=== PATIENT | female | born 1990 | race American Indian/Alaskan Native ===

== ENCOUNTER 2018-12-24 12:15 | Emergency (ER) | payer OTHER ==
[2018-12-24] MEDS ORDERED: Dexamethasone 4 mg/1 ml IM STA (13:03)
[2018-12-24] MEDS ORDERED: Amoxicillin-Clav 875-125 mg Tab PO STA (14:02)
[2018-12-24] MEDS ORDERED: Amoxicillin-Clav 875-125 mg Tab PO ONE (14:11)
--- NOTE | 2018-12-24 14:21 | C.PDOC ---
History Of Present Illness 28 year old female presents to ED with complaint of fever with associated generalized body aches and sore throat for the past 2 days. Patient has been taking over the counter medication with no relief. She denies nausea, vomiting, diarrhea, cough, chest pain, and shortness of breath. Time Seen by Provider: 12/24/18 12:37 Chief Complaint (Nursing): Flu-like Symptoms History Per: Patient History/Exam Limitations: no limitations Onset/Duration Of Symptoms: Days (2) Current Symptoms Are (Timing): Still Present Location Of Pain: Throat, Diffuse Myalgias Associated Symptoms: Fever, Sore Throat. denies: Cough, Nausea, Vomiting, Diarrhea Past Medical History Reviewed: Historical Data, Nursing Documentation, Vital Signs Vital Signs: Last Vital Signs Temp 100.0 F H 12/24/18 12:58 Pulse 114 H 12/24/18 12:22 Resp 22 12/24/18 12:22 BP 120/80 12/24/18 12:22 Pulse Ox 96 12/24/18 12:22 - Medical History PMH: No Chronic Diseases Surgical History: No Surg Hx Family History: States: Unknown Family Hx - Social History Hx Alcohol Use: No Hx Substance Use: No - Immunization History Hx Tetanus Toxoid Vaccination: Yes Hx Influenza Vaccination: Yes Hx Pneumococcal Vaccination: No Review Of Systems Constitutional: Positive for: Fever, Malaise. Negative for: Chills ENT: Positive for: Throat Pain Cardiovascular: Negative for: Chest Pain Respiratory: Negative for: Cough, Shortness of Breath, Sputum Gastrointestinal: Negative for: Nausea, Vomiting, Diarrhea Physical Exam - Physical Exam Appears: Well, Non-toxic, No Acute Distress Skin: Normal Color, Warm, Dry Head: Atraumatic, Normacephalic Ear(s): Bilateral: Normal Nose: Normal Throat: Erythema (moderate tonsillar erythema and swelling with large amount of exudates) Neck: Other (bilateral anterior cervical lymphadenopathy ) Chest: Symmetrical, No Deformity Cardiovascular: Rhythm Regular, No Murmur, Other (tachycardic) Respiratory: No Accessory Muscle Use, No Rales, No Rhonchi, No Wheezing Gastrointestinal/Abdominal: Soft, No Tenderness Extremity: Capillary Refill (<2 seconds) Neurological/Psych: Oriented x3, Normal Speech, Normal Cognition ED Course And Treatment O2 Sat by Pulse Oximetry: 96 (in RA) Pulse Ox Interpretation: Normal Medical Decision Making Medical Decision Making: Plan: Tylenol PO Toradol IM Decadron IM Augmentin PO Disposition - Disposition Referrals: Bright Sorensen MD [Staff Provider] - Disposition: HOME/ ROUTINE Disposition Time: 14:16 Condition: GOOD Additional Instructions: Follow up with the medical doctor within 1-2 days. Return if worsened. Prescriptions: Amoxicillin/Clavulanate [Augmentin 875 MG-125 MG] 1 tab PO BID #14 tab Ibuprofen [Motrin] 600 mg PO TID #21 tab predniSONE [Prednisone] 10 mg PO BID #10 tab Instructions: Sore Throat, Adult (DC) Forms: [employer] (Sinhala), Work Excuse - Clinical Impression Clinical Impression: Pharyngitis - PA / PULMONARY FELLOW / Resident Statement MD/DO has reviewed & agrees with the documentation as recorded. (Alyssa Rowley) - Scribe Statement The provider has reviewed the documentation as recorded by the Scribe (Alyssa Rowley) All medical record entries made by the Scribe were at my direction and personally dictated by me. I have reviewed the chart and agree that the record accurately reflects my personal performance of the history, physical exam, medical decision making, and the department course for this patient. I have also personally directed, reviewed, and agree with the discharge instructions and disposition.
[2018-12-24 14:50] VITALS: BP 108/74; PULSE 89; RESP 16; TEMP 98.7
[2018-12-24 14:55] VITALS: O2SAT 96
== END 2018-12-24 14:46 | disposition home or self-care (01) ==
LOC: C.ER 12:15
DX: J02.9 Acute pharyngitis, unspecified (principal)
CPT/HCPCS: 81025; 96372; 99284; J1100; J1885